=== PATIENT | female | born 1970 | race African-American/Black ===

== ENCOUNTER 2023-01-07 10:45 | Emergency (ER) | payer OTHER ==
[~2023-01-07] VITALS: Ht 167.6 cm; Wt 118.2 kg
[2023-01-07] MEDS ORDERED: ALBU8HFA IH (10:49)
[2023-01-07 13:00] VITALS: BP 122/73
== END 2023-01-07 13:28 | disposition home or self-care (01) ==
LOC: EMS 10:47
DX: S83.92XA Sprain of unspecified site of left knee, initial encounter (principal); J45.909 Unspecified asthma, uncomplicated; E11.9 Type 2 diabetes mellitus without complications; R32 Unspecified urinary incontinence; Z98.51 Tubal ligation status; Z90.89 Acquired absence of other organs; W19.XXXA Unspecified fall, initial encounter; Y93.01 Activity, walking, marching and hiking; Y92.89 Other specified places as the place of occurrence of the external cause; Y99.8 Other external cause status
CPT/HCPCS: 82962; 99283

== ENCOUNTER 2025-08-14 14:12 | Emergency (ER) | payer OTHER ==
[~2025-08-14] VITALS: Ht 165.1 cm; Wt 113.6 kg
[~2025-08-14 14:12] MED LIST: ALBU18HF12 IH
[2025-08-14 14:35] VITALS: TEMP 98.5
[2025-08-14] MEDS: MORPHINE SULFATE 4 MG/ML SYRINGE IM ONE (17:22)
[2025-08-14] MEDS: KETOROLAC TROMETHAMINE 60 MG/2 ML VIAL IM ONE (17:23)
[2025-08-14] MEDS: ONDANSETRON HCL 4 MG/2 ML VIAL IM ONE (17:24)
[2025-08-14] MEDS ORDERED: IBUP-1554 PO (17:55)
[2025-08-14] MEDS ORDERED: HYDR-4062 PO (17:55)
[2025-08-14 18:14] VITALS: BP 128/76; PULSE 81; RESP 16; O2SAT 99
== END 2025-08-14 18:14 | disposition home or self-care (01) ==
LOC: EMS 14:12
DX: S83.91XA Sprain of unspecified site of right knee, initial encounter (principal); E11.9 Type 2 diabetes mellitus without complications; J45.909 Unspecified asthma, uncomplicated; Z90.49 Acquired absence of other specified parts of digestive tract; Z90.5 Acquired absence of kidney; Z98.51 Tubal ligation status; Z79.899 Other long term (current) drug therapy; W06.XXXA Fall from bed, initial encounter; Y93.89 Activity, other specified; Y92.89 Other specified places as the place of occurrence of the external cause; Y99.8 Other external cause status
CPT/HCPCS: 99284; 82962; 73562; 96372; J1885; J2270; J2405